=== PATIENT | male | born 1975 | race Caucasian/White ===

== ENCOUNTER → 2019-02-04 17:25 | Outpatient (CLI) | payer OTHER, SELFPAY ==
--- NOTE | 2019-02-04 | DI.MRI.S_ITS ---
PROCEDURE: MR CERVICAL SPINE WO CON INDICATIONS: CERVICAL PAIN TECHNIQUE: Noncontrast sagittal T1 spin echo and T2 fast spin echo, sagittal STIR, foraminal oblique sagittal T2 fast spin echo, and axial gradient echo or T2 fast spin echo through the cervical spine. COMPARISON: None. FINDINGS: Image quality: Excellent. Alignment and Curvature: Loss of normal cervical lordosis. Bone Marrow: Marrow demonstrates normal overall signal. Mild reactive signal within the endplates adjacent to the C4-C5, C5-C6, and C6-C7 intervertebral discs. Spinal Cord: Visualized spinal cord has normal size and signal. No cerebellar tonsillar herniation. Paraspinous Soft Tissues: No paravertebral masses. Prevertebral soft tissues are normal in thickness. C2-C3: Mild disc desiccation. No significant canal, nor foraminal stenosis. C3-C4: Congenital canal stenosis. Mild disc desiccation. Mild facet and uncovertebral hypertrophy bilaterally. Mild canal stenosis. No foraminal stenosis. C4-C5: Congenital canal stenosis. Mild disc desiccation. Mild diffuse disc bulge. Mild facet and uncovertebral hypertrophy bilaterally. Moderate canal stenosis. Mild bilateral foraminal stenosis. C5-C6: Mild disc desiccation. Mild diffuse disc bulge. Congenital canal stenosis. Moderate right greater than left facet and uncovertebral hypertrophy. Moderate to severe canal stenosis. Minimal cord flattening. Severe right and mild left foraminal stenosis. Right C6 nerve root compression. C6-C7: Moderate disc desiccation. Mild diffuse disc bulge. Congenital canal stenosis. Mild facet and uncovertebral hypertrophy bilaterally. Moderate to severe canal stenosis. Minimal cord flattening. Severe bilateral foraminal stenosis. Bilateral C7 nerve root compression. C7-T1: Left greater than right facet and uncovertebral hypertrophy bilaterally. No significant canal stenosis. Moderate left and no right foraminal stenosis. IMPRESSION: 1. Multilevel degenerative disc and facet disease, as well as uncovertebral hypertrophy, superimposed on diffuse congenital canal stenosis. 2. Multilevel canal stenoses, worst at C5-C6 and C6-C7, where there is minimal cord flattening present. 3. Multilevel foraminal stenoses, worst at C5-C6 on the right, and at C6-C7 bilaterally where there is associated intraforaminal nerve root compression. Recommend correlation with clinical symptoms to ascertain relevance of these findings. Dictated by: Joey Huber M.D. on 02/05/2019 at 9:06 Approved by: Joey Huber M.D. on 02/05/2019 at 9:15
== END ==
PROVIDERS: Visit Provider Physical Medicine & Rehabilitation Pain Medicine
DX: M48.02 Spinal stenosis, cervical region (principal); M50.321 Other cervical disc degeneration at C4-C5 level
CPT/HCPCS: 72141